=== PATIENT | male | born 1945 | race Caucasian/White ===

== ENCOUNTER 2016-11-26 06:21 | Day surgery (SDC) | payer MEDICARE ==
[~2016-11-26 06:21] MED LIST: KETOROLAC TROMETHAMINE 0.45% 4 DROP/0.4 ML DROPERETTE OD PRN
[2016-11-26] MEDS: TETRACAINE HCL 0.5% OPH SOLN 2 ML OD PRN ×3 (06:41→07:32)
[2016-11-26] MEDS: TROPICAMIDE 1% OPH SOLN 3 ML OD PRN ×3 (06:42→07:16)
[2016-11-26] MEDS: CYCLOPENTOLATE 0.2%/PHENYLEPHRINE 1% OPH SOLN 2 ML OD PRN ×3 (06:43→07:17)
[2016-11-26] MEDS: BESIFLOXACIN HCL 0.6% OPH SUSP 5 ML BOTTLE OD PRN ×3 (06:44→07:54)
[2016-11-26] MEDS ORDERED: MIDAZOLAM 2 MG/2 ML INJ ONE (07:02)
[2016-11-26] MEDS ORDERED: EPINEPHRINE INJ/PF 1 MG/1 ML AMPULE ONE (07:06)
[2016-11-26] MEDS ORDERED: CHONDR SU A NA/HYALUR INTRAOC KIT (SURGICARE) ONE (07:07)
[2016-11-26] MEDS ORDERED: LIDOCAINE 1% INJ-PF (10 MG/ML) 30 ML SDV ONE (07:07)
--- NOTE | 2016-11-26 12:28 | [facility] OPERATIVE REPORT E ---
[facility] Operative Report NAME: SAMAN RIVAS AGE: 71Y DATE OF SURGERY: 11/26/2016 ROOM: PREOPERATIVE DIAGNOSIS: CATARACT, RIGHT EYE. POSTOPERATIVE DIAGNOSIS: CATARACT, RIGHT EYE. OPERATION: Cataract extraction with intraocular lens implant of the right eye. SURGEON: PASHA BOSS M.D. ANESTHESIA: Topical. PROCEDURE: After obtaining appropriate consent, the patient's right eye was prepped and draped in sterile fashion as well as the surgeon in a sterile manner and cataract surgery was started. First a paracentesis blade was used to make a small side-port incision. Viscoelastic was used to inflate the anterior chamber. Next a 2.4-mm incision was made with the paracentesis blade. A continuous capsulorrhexis incision was made using a cystotome and Utrata forceps. Following this hydrodissection was carried out to make the lens fully loose and mobile and it was rotated 90 degrees. Following this, a wufisi-mdo-tzzymzx technique was used to phacoemulsify the lens with a CDE of 8.19. The remaining cortex was removed with irrigation/aspiration. Provisc was instilled into the capsular bag to inflate the bag. A SN60WF, 15.5 diopter lens was placed. The remaining viscoelastic material was removed with irrigation/aspiration. Following this, a 10-0 nylon suture was used to close the incision and it was found to be watertight. Vigamox was instilled in the eye and a protective shield was placed over the eye. The patient returned to the postoperative recovery in stable condition. DICTATING PHYSICIAN: PASHA BOSS M.D. [id number] PHY#: [id number] ID: [id number] JOB#: [id number] ACCT: [id number] cc:PASHA BOSS M.D. >
--- NOTE | 2016-11-26 12:33 | [facility] DISCHARGE SUMMARY E ---
[facility] Discharge Summary NAME: SAMAN RIVAS AGE: 71Y ADMITTED: 11/26/2016 DISCHARGED: 11/26/2016 IDENTIFICATION: This is a 71-year-old male who underwent cataract extraction of the right eye. DIAGNOSIS: Cataract, right eye. INDICATIONS FOR PROCEDURE: He underwent surgery because he was having difficulty seeing faces at a distance and trouble seeing words on a TV. DISCHARGE INSTRUCTIONS: He should be on a regular diet. No bending at his waist and no heavy lifting. He should use his Besivance, Ilevro and Durezol at 3 p.m. and 8 p.m. and sleep with a rigid shield. I will see him for his 1 day postoperative tomorrow. DICTATING PHYSICIAN: PASHA BOSS M.D. [id number] PHY#: [id number] ID: [id number] JOB#: [id number] ACCT: [id number] cc:PASHA BOSS M.D. >
== END 2016-11-26 08:34 | disposition home or self-care (01) ==
LOC: SC 06:21
PROVIDERS: ATTEND Internal Medicine
PROC: 08RJ3JZ Replacement of Right Lens with Synthetic Substitute, Percutaneous Approach (ICD-10-PCS; principal; 2016-11-26 07:30)
DX: H25.811 Combined forms of age-related cataract, right eye (principal); Z96.1 Presence of intraocular lens; E11.9 Type 2 diabetes mellitus without complications; I10 Essential (primary) hypertension; E78.00 Pure hypercholesterolemia, unspecified; I49.9 Cardiac arrhythmia, unspecified; Z88.0 Allergy status to penicillin; Z79.01 Long term (current) use of anticoagulants; Z79.899 Other long term (current) drug therapy; Z79.84 Long term (current) use of oral hypoglycemic drugs
CPT/HCPCS: 66984; 82962; V2632; J2250; J3490 ×2; A9270; J0171; 142